=== PATIENT | male | born 1990 | race Caucasian/White ===

== ENCOUNTER 2017-08-04 07:22 | Day surgery (SDC) | payer OTHER ==
[~2017-08-04] VITALS: Ht 182.9 cm; Wt 97.8 kg
[2017-08-04 07:45] VITALS: BP 140/91; PULSE 62; TEMP 97.7
[2017-08-04 09:45] VITALS: BP 112/45; PULSE 56
[2017-08-04 10:00] VITALS: BP 110/67; PULSE 78
== END 2017-08-04 10:40 | disposition home or self-care (01) ==
LOC: SDCO 07:22
DX: K59.00 Constipation, unspecified (principal); R19.7 Diarrhea, unspecified; R11.0 Nausea; R10.9 Unspecified abdominal pain; L29.0 Pruritus ani; K62.5 Hemorrhage of anus and rectum
CPT/HCPCS: J2250; J3010; J7030